=== PATIENT | male | born 1960 | race Caucasian/White ===

== ENCOUNTER 2021-01-27 18:02 | Emergency (ER) | payer OTHER ==
[~2021-01-27] VITALS: Ht 180.3 cm; Wt 92.5 kg
[2021-01-27 18:10] VITALS: BP 160/59
--- NOTE | 2021-01-27 18:42 | NUR ---
MD Brice evaluating pt at chairside.
[2021-01-27 19:05] VITALS: BP 160/59
--- NOTE | 2021-01-27 19:05 | NUR ---
NO NURSING INTERVENTIONS GIVEN
--- NOTE | 2021-01-27 19:06 | NUR ---
Patient discharged with v/s stable. Written and verbal after care instructions given and explained. Patient verbalized understanding. Police with in custody. All questions addressed prior to discharge. Advised to follow up with PMD.
== END 2021-01-27 19:06 ==
LOC: MED 18:02
DX: Z02.89 Encounter for other administrative examinations (principal); V98.8XXA Other specified transport accidents, initial encounter; Y93.89 Activity, other specified; Y92.89 Other specified places as the place of occurrence of the external cause; Y99.8 Other external cause status
CPT/HCPCS: 99283